=== PATIENT | female | born 1985 | race Caucasian/White ===

== ENCOUNTER 2016-09-02 15:26 | Emergency (ER) | payer BC ==
[~2016-09-02] VITALS: Ht 157.5 cm; Wt 55.2 kg
[2016-09-02 15:31] VITALS: TEMP 36.8; Ht 157.5 cm; Wt 55.2 kg
--- NOTE | 2016-09-02 16:06 | DIAGNOSTIC IMAGING REPORT ---
RIGHT FINGER(S) MIN 2 VIEWS ROUTINE CLINICAL HISTORY: Metallic splinter COMPARISON: None. DISCUSSION: There is a metallic wire-like foreign body within the soft tissues at the level of the volar aspect of the tuft of the distal phalanx. The foreign body, is in close apposition to the cortex the distal phalanx, but no fractures are visualized. IMPRESSION: 1. No acute fractures 2. Metallic wire-like foreign body within the soft tissues at the volar aspect of the tuft of the distal phalanx Electronically signed by: Thom Mchugh M.D. 09/02/2016 4:04 PM Dictated Date/Time: 09/02/2016 4:02 PM
[2016-09-02] MEDS ORDERED: XYLOCAINE 1%/SOD BICARB 20 ML VIAL INFIL ONE (16:15)
[2016-09-02] MEDS ORDERED: PYRI60TA2 PO (16:17)
[2016-09-02] MEDS ORDERED: MULT-506 PO (16:17)
[2016-09-02] MEDS ORDERED: CALC600T9 PO (16:17)
[2016-09-02] MEDS ORDERED: PRED20TA PO (16:17)
[2016-09-02] MEDS ORDERED: CEPH500C PO (16:27)
--- NOTE | 2016-09-02 16:29 | EMERGENCY ROOM VISIT NOTE ---
ED Visit Note First contact with patient: 15:35 CHIEF COMPLAINT: piece of metal in the right 4th finger HPI: This is a 31-year-old female patient who presents to the emergency department complaining of piece of metal stuck in her right fourth finger. She states she was wiping crumbs off of a car seat proximally one and a half hours prior to arrival, when she felt a prick, and noticed there was a long piece of metal which had punctured her right fourth finger and was sticking out from both ends. The patient attempted to remove the metal, however was unable to drip pumper it well enough to remove it without further injury. The patient went to an urgent care in [place], where she was advised to seek care in the emergency department because the provider did not feel comfortable removing the foreign body. The patient now reports a throbbing sensation in the fingertip, which she rates 7/10. The patient states the pain increases with palpation, however she does not have increased pain with movement of the digit. The patient denies change in color of the digit, numbness or tingling, extremely cold digit , hand pain, decreased range of motion, other associated symptoms. The patient' s tetanus shot is not up-to-date. REVIEW OF SYSTEMS: A complete 6 point review of systems was reviewed with the patient with pertinent positives and negatives as per history of present illness. All else were negative. PMH: Myasthenia gravis MEDS: Prednisone, Mestinon Allergies: None SOCIAL HISTORY: Patient lives locally with her family. She denies alcohol, drug, tobacco use. PHYSICAL EXAM: Vital signs: Reviewed nurse's notes. Vital signs stable. GENERAL: 31-year-old female, in no acute distress, nondiaphoretic, well- developed, well-nourished. SKIN: There is a approximately 3-4 cm foreign body transversely through the skin of the distal anterior aspect of the right fourth digit. There is minimum swelling. There is no discoloration of the skin. There is no active bleeding at this time. The skin is without rashes, erythema , edema, or bruising. MUSCULOSKELETAL: The patient has full range of motion of all fingers. Strength of the right fourth digit 5/5. Minimal tenderness to palpation of the right fourth digit, overlying the foreign body. There is no joint tenderness. Normal sensation to light and sharp touch. NEURO: Patient is alert and oriented to person, place, time, and event. No focal neurological deficits. RADIOLOGY: X-Ray of Finger: DISCUSSION: There is a metallic wire-like foreign body within the soft tissues at the level of the volar aspect of the tuft of the distal phalanx. The foreign body, is in close apposition to the cortex the distal phalanx, but no fractures are visualized. IMPRESSION: 1. No acute fractures 2. Metallic wire-like foreign body within the soft tissues at the volar aspect of the tuft of the distal phalanx EMERGENCY DEPARTMENT COURSE: The patient was seen and evaluated as above. An x- ray was performed to rule out bony injury, or foreign body through the bone. The wound was cleansed with Betadine. A digital block was performed by our PA student utilizing 3 mL's 1% buffered lidocaine. After the digit was anesthetized, the foreign body was removed utilizing hemostats. The foreign body was successfully removed without further injury or harm. The wound was bandaged with a small amount of bacitracin ointment and gauze. The patient was given a tetanus vaccination. The patient was discharged home in good condition. DIFFERENTIAL DIAGNOSIS: Phalanx fracture, infection, and others. DIAGNOSIS: Foreign body in the finger DISCHARGE INSTRUCTIONS: Proper wound care is essential for adequate wound healing and infection prevention. You can shower and clean the wound with soap and water. Do not scour over the wound, pat dry with a towel. Do not submerse the wound (i.e. bathe or dish wash) until the wound has fully healed. You can use an antibiotic ointment with a dressing over the wound for the next 3-4 days. After this time you may leave the wound dry and open to the air. For pain control, you can use the following [id number] medicines (if >12 yo): - Regular strength (325mg/tab) Tylenol (acetaminophen) 2 tabs every 4-6 hours as needed. Do not exceed 9 tablets in a 24 hour period. Avoid taking more than 3 grams (3000 mg) of Tylenol per day. This includes any other sources of acetaminophen you may take on a regular basis. - Regular strength (200 mg/tab) Advil (ibuprofen) 1-2 tabs every 4-6 hours as needed. Do not exceed a dose of 3200 mg per day. Monitor the site for signs of infection including redness, swelling, pus, drainage, or other symptoms including fever, chills, nausea, body aches. If these occur, return to the emergency department or seek care by your PCP. Please follow-up with your PCP and specialist regarding further evaluation and care at your regularly scheduled appointment next week. Current/Historical Medications Scheduled Calcium Carbonate-Vitamin D (Calcium + D), 1 TAB PO DAILY Cephalexin Monohydrate (Keflex), 500 MG PO QID Multivitamin (Multivitamin), 1 TAB PO DAILY Prednisone (Prednisone), 40 MG PO DAILY Pyridostigmine [place] (Mestinon), 60 MG PO TID Allergies Coded Allergies: No Known Allergies (Unverified , 09/02/16) Vital Signs Date Time Temp Pulse Resp B/P (MAP) Pulse Ox O2 Delivery O2 Flow Rate FiO2 09/02/16 16:55 72 18 117/57 100 09/02/16 15:31 36.8 93 18 129/73 100 Room Air Medications Administered Medications (Trade) Dose Ordered Sig/Emani Route Start Time Stop Time Status Last Admin Dose Admin Lidocaine HCl (Buffered Lidocaine 1% Inj) 20 ml ONE ONCE INFIL 09/02/16 16:15 09/02/16 16:16 DC 09/02/16 16:15 20 ML Diphtheria/ Pertussis/Tetanus Vacc (Adacel Inj) 0.5 ml ONCE ONCE IM. 09/02/16 16:30 09/02/16 16:31 DC 09/02/16 16:52 0.5 ML Departure Information Impression Primary Impression: Foreign body finger Dispostion Home / Self-Care Condition GOOD Prescriptions Cephalexin Monohydrate (Keflex) 500 Mg Cap 500 MG PO QID for 7 Days, #28 CAP Prov: Rere Arndt PA-C 09/02/16 Referrals No Doctor, Assigned (PCP) Patient Instructions ED Wound Care, [facility] [place] Additional Instructions Proper wound care is essential for adequate wound healing and infection prevention. You can shower and clean the wound with soap and water. Do not scour over the wound, pat dry with a towel. Do not submerse the wound (i.e. bathe or dish wash) until the wound has fully healed. You can use an antibiotic ointment with a dressing over the wound for the next 3-4 days. After this time you may leave the wound dry and open to the air. For pain control, you can use the following [id number] medicines (if >12 yo): - Regular strength (325mg/tab) Tylenol (acetaminophen) 2 tabs every 4-6 hours as needed. Do not exceed 9 tablets in a 24 hour period. Avoid taking more than 3 grams (3000 mg) of Tylenol per day. This includes any other sources of acetaminophen you may take on a regular basis. - Regular strength (200 mg/tab) Advil (ibuprofen) 1-2 tabs every 4-6 hours as needed. Do not exceed a dose of 3200 mg per day. Monitor the site for signs of infection including redness, swelling, pus, drainage, or other symptoms including fever, chills, nausea, body aches. If these occur, return to the emergency department or seek care by your PCP. Please follow-up with your PCP and specialist regarding further evaluation and care at your regularly scheduled appointment next week.
[2016-09-02] MEDS ORDERED: DIPHTHERIA/TETANUS/PERTUSSIS 0.5 ML SYR/VIAL IM. ONE (16:30)
[2016-09-02 16:55] VITALS: BP 117/57; PULSE 72; O2SAT 100
== END 2016-09-02 16:56 | disposition home or self-care (01) ==
LOC: C.EDB 15:28 → C.EDD 16:56
DX: S60.454A Superficial foreign body of right ring finger, initial encounter (principal); W45.8XXA Other foreign body or object entering through skin, initial encounter; G70.00 Myasthenia gravis without (acute) exacerbation; Z23 Encounter for immunization